=== PATIENT | female | born 1945 | race Caucasian/White ===

== ENCOUNTER 2019-08-29 21:01 | Emergency (ER) | payer MEDICARE, OTHER ==
[~2019-08-29] VITALS: Ht 162.6 cm; Wt 95.2 kg
[2019-08-29 21:47] LABS: BASOPHILS ABSOLUTE AUTO 0.03 K/mm3 (0.00-0.23); BASOPHILS PERCENT AUTO 1 % (0-2); EOSINOPHILS ABSOLUTE AUTO 0.15 K/mm3 (0.00-0.68); EOSINOPHILS PERCENT AUTO 3 % (0-6); Hematocrit 35.9 % (33.0-51.0); Hemoglobin 10.5 g/dL (11.5-16.0); IMMATURE GRAN ABSOLUTE AUTO 0.05 K/mm3 (0.00-0.10); IMMATURE GRAN PERCENT AUTO 1 % (0-1); LYMPHOCYTES PERCENT AUTO 10 % (21-46); MONOCYTES ABSOLUTE AUTO 0.51 K/mm3 (0.16-1.47); MONOCYTES PERCENT AUTO 9 % (4-13); Mean Corpuscular HGB 27.6 pg (26.0-34.0); Mean Corpuscular HGB Conc 29.2 g/dL (31.5-36.5); Mean Platelet Volume 9.4 fL (9.1-12.4); NEUTROPHILS ABSOLUTE AUTO 4.47 K/mm3 (1.96-9.15); NEUTROPHILS PERCENT AUTO 77 % (41-73); Platelet Count 253 K/mm3 (150-400); RDW Coefficient Variation 15.8 % (11.7-14.2); White Blood Cell Count 5.81 K/mm3 (4.00-11.30)
[2019-08-29 21:51] LABS: Mean Corpuscular Volume 95 fL (80-100)
[2019-08-29 22:07] LABS: Alanine Aminotransfer (ALT/SGP 44 U/L (12-78); Albumin, Blood 2.5 g/dL (3.4-5.0); Albumin/Globulin Ratio 0.6 (0.8-1.8); Alk Phos 195 U/L (50-136); Anion Gap 2 mmol/L (6-16); Aspartate Aminotrans (AST/SGOT 42 U/L (12-37); Bilirubin, Total 0.2 mg/dL (0.1-1.0); Blood Urea Nitrogen 10 mg/dL (8-24); Bun/Creatinine Ratio 13.8 (12.0-20.0); CO2, Blood 35 mmol/L (21-32); Calcium, Blood 8.2 mg/dL (8.5-10.1); Chloride, Blood 102 mmol/L (98-108); Creatinine, Blood 0.73 mg/dL (0.40-1.00); Globulin, Blood 4.5 g/dL (2.2-4.0); Glomerular Filtration Rate >60 (60-); Glucose, Blood 91 mg/dL (70-99); Potassium, Blood 4.2 mmol/L (3.5-5.5); Sodium, Blood 139 mmol/L (136-145); Troponin I <0.015 ng/mL (0.000-0.040)
[2019-08-29] MEDS ORDERED: DOXY100 PO (22:49)
[2019-08-29] MEDS ORDERED: LORA.5 PO (22:55)
[2019-08-30 01:13] LABS: PCO2 Arterial 58.7 mmHg (35-45); pH Blood Arterial 7.37 (7.35-7.45)
[2019-08-30] MEDS ORDERED: DELTASONE20 MG PO (01:29)
== END 2019-08-30 01:47 | disposition home or self-care (01) ==
LOC: ER 21:01
PROVIDERS: Emergency Medicine
DX: J44.1 Chronic obstructive pulmonary disease with (acute) exacerbation (principal); J18.9 Pneumonia, unspecified organism; Z79.899 Other long term (current) drug therapy; Z79.2 Long term (current) use of antibiotics; D64.9 Anemia, unspecified; E03.9 Hypothyroidism, unspecified; F41.9 Anxiety disorder, unspecified; F32.9 Major depressive disorder, single episode, unspecified; M79.10 Myalgia, unspecified site
CPT/HCPCS: 36415; 36600; 71046; 80053; 82803; 83605; 83690; 84484; 85025; 87040; 93005; 93010; 94640; 96365; 96375; 99285-25; J0696; J1100; J7030

== ENCOUNTER 2019-09-09 16:21 | Inpatient (IN) | payer MEDICARE, OTHER ==
[~2019-09-09] VITALS: Ht 165.1 cm; Wt 79.1 kg
[~2019-09-09 16:21] MED LIST: DELTASONE20 MG PO; DOXY100 PO; LORA.5 PO
[2019-09-09 17:19] LABS: BASOPHILS ABSOLUTE AUTO 0.04 K/mm3 (0.00-0.23); BASOPHILS PERCENT AUTO 0 % (0-2); EOSINOPHILS ABSOLUTE AUTO 0.29 K/mm3 (0.00-0.68); EOSINOPHILS PERCENT AUTO 3 % (0-6); Hemoglobin 11.4 g/dL (11.5-16.0); IMMATURE GRAN ABSOLUTE AUTO 0.08 K/mm3 (0.00-0.10); IMMATURE GRAN PERCENT AUTO 1 % (0-1); LYMPHOCYTES ABSOLUTE AUTO 0.48 K/mm3 (0.84-5.20); LYMPHOCYTES PERCENT AUTO 5 % (21-46); MONOCYTES ABSOLUTE AUTO 1.33 K/mm3 (0.16-1.47); MONOCYTES PERCENT AUTO 13 % (4-13); Mean Corpuscular HGB 28.2 pg (26.0-34.0); Mean Platelet Volume 10.3 fL (9.1-12.4); NEUTROPHILS ABSOLUTE AUTO 8.44 K/mm3 (1.96-9.15); NEUTROPHILS PERCENT AUTO 79 % (41-73); Platelet Count 238 K/mm3 (150-400); RDW Coefficient Variation 15.5 % (11.7-14.2); RDW Standard Deviation 53.4 fL (35.1-46.3); Red Blood Cell Count 4.04 M/mm3 (3.80-5.20); White Blood Cell Count 10.66 K/mm3 (4.00-11.30)
[2019-09-09 17:20] LABS: Mean Corpuscular Volume 94 fL (80-100)
[2019-09-09 17:26] LABS: Alanine Aminotransfer (ALT/SGP 50 U/L (12-78); Albumin, Blood 2.5 g/dL (3.4-5.0); Albumin/Globulin Ratio 0.5 (0.8-1.8); Alk Phos 254 U/L (50-136); Anion Gap 4 mmol/L (6-16); Aspartate Aminotrans (AST/SGOT 33 U/L (12-37); Bilirubin, Total 0.4 mg/dL (0.1-1.0); Blood Urea Nitrogen 13 mg/dL (8-24); CO2, Blood 37 mmol/L (21-32); Calcium, Blood 8.6 mg/dL (8.5-10.1); Chloride, Blood 95 mmol/L (98-108); Creatinine, Blood 0.68 mg/dL (0.40-1.00); Globulin, Blood 4.9 g/dL (2.2-4.0); Glomerular Filtration Rate >60 (60-); Glucose, Blood 105 mg/dL (70-99); Potassium, Blood 3.7 mmol/L (3.5-5.5); Sodium, Blood 136 mmol/L (136-145); Total Protein, Blood 7.4 g/dL (6.4-8.2)
[2019-09-09 18:24] LABS: Influenza A Negative (NEGATIVE); Influenza B Negative (NEGATIVE)
[2019-09-09] MEDS ORDERED: DULO30 PO (19:37)
[2019-09-09] MEDS ORDERED: THERA-D2000 UNIT PO (19:37)
[2019-09-09] MEDS ORDERED: ASCO500 PO (19:37)
[2019-09-09] MEDS ORDERED: FERSU300 PO (19:38)
[2019-09-09] MEDS ORDERED: FOLI400 PO (19:38)
[2019-09-09] MEDS ORDERED: FURO40 PO (19:38)
[2019-09-09] MEDS ORDERED: LEVSOD125 PO (19:38)
[2019-09-09] MEDS ORDERED: PRAM.5 PO (19:39)
[2019-09-09] MEDS ORDERED: Pravachol40 MG PO (19:39)
[2019-09-09] MEDS ORDERED: PROBIOTIC1 EAC4 PO (19:39)
[2019-09-09] MEDS ORDERED: SPIR25 PO (19:40)
[2019-09-09] MEDS ORDERED: INCRUSE ELLI62.5 MCG INH (19:40)
[2019-09-09] MEDS ORDERED: FLUT1DIS8 INH (19:41)
[2019-09-09] MEDS ORDERED: CARBAMAZEPINE100 M1 PO (19:42)
[2019-09-09] MEDS ORDERED: CARV3.125 PO (19:42)
[2019-09-09] MEDS ORDERED: MUCUS ER600 M1 PO (19:43)
[2019-09-09] MEDS ORDERED: OMEPRAZOLE20 MG PO (19:43)
[2019-09-09] MEDS ORDERED: Keppra250 MG PO (19:43)
[2019-09-09] MEDS ORDERED: ACET325 PO ×2 (19:44→19:49)
[2019-09-09] MEDS ORDERED: GABA100 PO (19:44)
[2019-09-09] MEDS ORDERED: BUSP10 PO (19:44)
[2019-09-09] MEDS ORDERED: MORPHINE SULFAT15 M1 PO ×2 (19:45→19:48)
[2019-09-09] MEDS ORDERED: POTA10T PO (19:45)
[2019-09-09] MEDS ORDERED: NITR.4SL SL (19:46)
[2019-09-09] MEDS ORDERED: ALBU2.5V5 NEB (19:46)
[2019-09-09] MEDS ORDERED: ONDA4 PO (19:47)
[2019-09-09] MEDS ORDERED: ALBU90OI INH (19:49)
[2019-09-09] MEDS ORDERED: Eq Liquid Anta769 ML PO (19:52)
[2019-09-09] MEDS ORDERED: BISA10S PR (19:53)
[2019-09-09] MEDS ORDERED: Fleet Enema132 ML PR (19:53)
[2019-09-09] MEDS ORDERED: GLYCERIN1 EACH PR (19:54)
[2019-09-09] MEDS ORDERED: MIRALAX17 GM PO (19:54)
[2019-09-09] MEDS ORDERED: Milk Of Ma400 MG/5 M PO (19:56)
[2019-09-09] MEDS ORDERED: DICLOFENAC SOD100 G1 TOP (19:57)
[2019-09-09] MEDS ORDERED: LIDO5TO TOP (19:57)
[2019-09-09 20:18] LABS: PO2 Arterial 65.5 mmHg (80-100); pH Blood Arterial 7.39 (7.35-7.45)
--- NOTE | 2019-09-10 01:30 | NUR ---
NOTIFIED NURSING SOLVENT MIXER OF PT'S DECLINING CONDITION AND INCREASED RESPIRATORY NEEDS, TACHY HR, AND INCREASED RESPIRATIONS OF 27, TEMP OF 100.5. NURSING SOLVENT MIXER TO COME AND ASSESS PT. 0216 NURSING SOLVENT MIXER IN TO SEE PT. NEW IV PLACED BY SOLVENT MIXER, SHIRIN RESTARTED. TEMP 102.5. TYLENOL GIVEN. 0235 HR 125, RESP 34. NURSING SOLVENT MIXER AWARE, SPOKE TO HOSPITALIST, PT TO BE TRANSFERRED TO ICU 6. 0258 REASSESSED TEMP, 101.8. PT TO BE TRANSFERRED TO ICU 6, PCU STATUS.
--- NOTE | 2019-09-10 02:24 | NUR ---
PT WAS ADMITTED FROM THE ER AND SHE SEEMED VERY SICK. HER HR WENT UP TO 150 BPM AT TIMES. IRRIGATION PUMP INSTALLER IN HER ROOM AT THAT TIME AND SHE CALLED THE PHYSICIAN AND THE SUPERVISOR WOOL SHEARING. THE SUPERVISOR WOOL SHEARING AND IRRIGATION PUMP INSTALLER ARE STILL IN THE ROOM WITH THE PATIENT. PT'S DAUGHTER CALLED TO CHECK ON HER MOM IN THE MIDST OF THIS. SHE WANTS A CALL BACK SOON WE KNOW WHAT'S GOING ON WITH HER MOM AND IF SHE WILL BE MOVED TO HIGHER LEVEL OF CARE. I INFORMED THE DAUGHTER WE WILL CALL HER SOON WE KNOW ANYTHING.
--- NOTE | 2019-09-10 03:15 | NUR ---
REPORT GIVEN TO HUNG, ICU DOCKETING SPECIALIST. PT TRANSPORTED WEARING MASK ON 5L 02 VIA OXIMIZER. ALL PERSONAL BELONGINGS, MEDS, AND CHART TRANSPORTED TO ICU 6. DAUGHTER INFORMED OF TRANSFER PER RN.
--- NOTE | 2019-09-10 03:29 | NUR ---
SHIFT SUMMARY PT WAS ADMITTED ABOUT 1999 LAST EVENING. HER CONDITION WORSENED WHILE HERE ON THE MEDICAL FLOOR. HER RR INCREASED TO 34 BPM AND HER TEMP WAS 102.5 AND HER OXYGEN SATS KEPT DROPPING SO HER O2 WAS TURNED UP TO 5L O2 AND SHE WAS SATTING AT 90% ON 5L WHEN SHE LEFT THIS FLOOR. SHE WAS ADMITTED TO ICU 6. DR. ANDERSON CAME DOWN AND ASSESSED HER BEFORE SHE LEFT THIS FLOOR. SHE WAS ADMITTED FOR ACUTE ON CHRONIC RESP FAILURE. THIS RN SPOKE WITH HER DAUGHTER ON THE PHONE. THE FIRST TIME SHE WANTED TO KNOW ALL OF THE BASIC INFORMATION AND THE SECOND PHONE CALL, I TOLD HER THAT HER MOM WAS GOING TO BE MOVED TO ICU. SHE LEFT THIS FLOOR ABOUT 0300.
[2019-09-10 03:54] LABS: Source, Urine Catheter
[2019-09-10 03:55] LABS: BASOPHILS ABSOLUTE AUTO 0.04 K/mm3 (0.00-0.23); BASOPHILS PERCENT AUTO 0 % (0-2); EOSINOPHILS ABSOLUTE AUTO 0.21 K/mm3 (0.00-0.68); EOSINOPHILS PERCENT AUTO 1 % (0-6); Hematocrit 37.3 % (33.0-51.0); IMMATURE GRAN PERCENT AUTO 1 % (0-1); LYMPHOCYTES ABSOLUTE AUTO 0.29 K/mm3 (0.84-5.20); LYMPHOCYTES PERCENT AUTO 2 % (21-46); MONOCYTES ABSOLUTE AUTO 1.52 K/mm3 (0.16-1.47); MONOCYTES PERCENT AUTO 9 % (4-13); Mean Corpuscular HGB 27.7 pg (26.0-34.0); Mean Corpuscular HGB Conc 29.5 g/dL (31.5-36.5); Mean Corpuscular Volume 94 fL (80-100); Mean Platelet Volume 10.1 fL (9.1-12.4); NEUTROPHILS ABSOLUTE AUTO 14.09 K/mm3 (1.96-9.15); NEUTROPHILS PERCENT AUTO 87 % (41-73); Platelet Count 248 K/mm3 (150-400); RDW Coefficient Variation 15.4 % (11.7-14.2); RDW Standard Deviation 53.6 fL (35.1-46.3); Red Blood Cell Count 3.97 M/mm3 (3.80-5.20); White Blood Cell Count 16.25 K/mm3 (4.00-11.30)
[2019-09-10 03:58] LABS: Bilirubin, Urine Neg (Neg); Blood, Urine Neg (Neg); Glucose Qualitative, Urine Neg (Neg); Ketones, Urine 2+ (Neg); Leukocyte Esterase, Urine Neg (Neg); Nitrite, Urine Neg (Neg); Protein, Urine Neg (Neg); Urobilinogen, Urine 1+ (Normal)
[2019-09-10 04:03] LABS: Appearance, Urine Clear (Clear); Color, Urine Yellow (P-Yellow)
--- NOTE | 2019-09-10 04:05 | NUR ---
DAUGHTER HERMELINDA AT BEDSIDE AND STATES PT WAS JUST AT [facility] FOR TWO WEEKS LAST MONTH.
--- NOTE | 2019-09-10 04:16 | NUR ---
DR. SIMPSON AT BEDSIDE.
--- NOTE | 2019-09-10 04:48 | NUR ---
DAUGHTER REQUEST TO SPEAK TO DOCTOR. DR. SIMPSON NOTIFIED.
--- NOTE | 2019-09-10 05:04 | NUR ---
DR. SIMPSON TO ROOM. VERBAL ORDER TO START PT ON NS 150/hr AND IF PT'S BP DROPS AGAIN TO BEGIN LOW DOSE LEVOPHED.
--- NOTE | 2019-09-10 05:32 | NUR ---
PT AWAKENS SLIGHTLY WHEN REPOSITIONED AND WHEN RT REPLACED BIPAP MASK BUT WOULD FALL BACK TO SLEEP, NOT FOLLOWING COMMANDS.
--- NOTE | 2019-09-10 05:43 | NUR ---
CALL FROM PT'S DAUGHTER HERMELINDA. HERMELINDA GIVEN UPDATE AND REPEAT INFORMATION REGARDING COMFORT MEASURE PROTOCOL.
[2019-09-10 07:19] LABS: PCO2 Arterial 51.3 mmHg (35-45); PO2 Arterial 64.8 mmHg (80-100); pH Blood Arterial 7.38 (7.35-7.45)
--- NOTE | 2019-09-10 07:58 | NUR ---
Reciueved report from Floridalma HACKETT. Patient resting in bed and awakens to verbal stimuli. She is able to answer questions buts states scared as she can not remember anything and assured her she is safe and she is doing better then when she arrived. She states no pain and breathing better. She was and is on BIPAP16/6 and 30% FiO2 and sats 97% and while doing am care had mask off and started to desat after about 10 minutes to high 80's and recovered very quickly after placing BIPAP. She knows self and unable to answer anything else currently. She has 18ga IV in LAC and dressing intact and site WNL's flushed and SL's. She also has 20ga IV RW dressing intact and site WNL's and is infusing NS at 150ml/hr. She has hearing aid left ear and states other one was at care facility and was not working well. HR 80-90's and systolic high 90's. CAMPUZANO but very weak and takes her time to follow directions.
--- NOTE | 2019-09-10 09:30 | NUR ---
Patient resting with BIPAP in place with same settings and sats upper 90%'s. She is clearing and having better conversations. Systolic 90-120 and HR 70-80's. No other significant changes, Using extremoities better and quicker with following directions.
--- NOTE | 2019-09-10 11:29 | NUR ---
Patient has several times stated she had BM and last time rond hard showing and got her up to bedside cammode and had extra large BM very dark and almost black. She was a two person assist to cammode and 1 back. She was able to reposition self back in bed. She was on 4L O2 via NC for about an hour and just placed her back on BIPAP original settings for a nap.
--- NOTE | 2019-09-10 13:30 | NUR ---
Patients family in room at bedside. She is on 4L O2 via NC. Dr Eng has been by and wants her to stay in ICU one more day to see if systolic remains above 100 after fluids finish. She has tolerated NC and sats upper 90%'s and states not struggling to breath. PT worked with patient and since family in room OT will come back.
--- NOTE | 2019-09-10 17:52 | NUR ---
She is sitting up in bed after ray celestin and starting on her chicken noodle soup. She tolerated med taking them herself. She is on 4L O2 via NC and sats upper 90%'s, just took her off bipap. Systolic 99-130's. Continued to hold her coreg as fluyids are almost done and dont want pressure to bottom out.
--- NOTE | 2019-09-10 19:02 | NUR ---
Fluids stopped after 2 liters and her systolic remains at 120's, HR 80's. She remains on 4L O2 and sats 99%.
--- NOTE | 2019-09-11 00:02 | NUR ---
START OF SHIFT: REPORT FROM BILLY HACKETT. PT AWAKE WATCHING TV. VSS. PT ON 5L NASAL CANNULA, SATS >95%. PRIOR TO INITIAL ASSESSMENT, PT'S DAUGHTER HERMELINDA CALLED AND WAS UPDATED. PT WAS INFORMED THAT DAUGHTER HAD CALLED. PT STATED WANTS TO GO HOME ON HOME HEALTH. PT'S DAUGHER STATED PT WILL GO HOME AND HOPEFULLY END UP ON HOSPICE. PT USED TELEPHONE TO CALL THE DAUGHTER TO MAKE ARRANGEMENTS FOR SOMEONE TO GO GET HER THINGS FROM [facility]. PT REMAINS AWAKE FALLING ASLEEP FOR BRIEF MOMENTS. PT WATCHES TV AND IS MUNCHING ON CRACKERS AND PUDDING. PT SWALLOWS WITHOUT DIFFICULTY SIPPING FROM CUPS. WILL CONTINUE TO MONITOR. CALL LIGHT WITHIN REACH.
[2019-09-11 03:42] LABS: BASOPHILS ABSOLUTE AUTO 0.01 K/mm3 (0.00-0.23); BASOPHILS PERCENT AUTO 0 % (0-2); EOSINOPHILS PERCENT AUTO 0 % (0-6); Hematocrit 34.4 % (33.0-51.0); IMMATURE GRAN ABSOLUTE AUTO 0.06 K/mm3 (0.00-0.10); IMMATURE GRAN PERCENT AUTO 1 % (0-1); LYMPHOCYTES ABSOLUTE AUTO 0.29 K/mm3 (0.84-5.20); LYMPHOCYTES PERCENT AUTO 4 % (21-46); MONOCYTES ABSOLUTE AUTO 0.23 K/mm3 (0.16-1.47); MONOCYTES PERCENT AUTO 3 % (4-13); Mean Corpuscular HGB 27.8 pg (26.0-34.0); Mean Corpuscular HGB Conc 29.1 g/dL (31.5-36.5); Mean Corpuscular Volume 96 fL (80-100); Mean Platelet Volume 10.1 fL (9.1-12.4); NEUTROPHILS ABSOLUTE AUTO 7.45 K/mm3 (1.96-9.15); NEUTROPHILS PERCENT AUTO 93 % (41-73); Platelet Count 185 K/mm3 (150-400); RDW Coefficient Variation 15.4 % (11.7-14.2); RDW Standard Deviation 54.3 fL (35.1-46.3); White Blood Cell Count 8.04 K/mm3 (4.00-11.30)
--- NOTE | 2019-09-11 04:03 | NUR ---
PT C/O LINO, REQUESTING TYLENOL AND COFFEE. PT C/O BOTTOM PAIN FOR TWO WEEKS AND POINTED TO THE INNER FOLD OF LEFT BUTTOCK AND STATED THAT IT'S BEEN BOTHERSOME FOR A COUPLE OF WEEKS NOW. COCCXY SLIGHTLY REDDENED. MEPILEX PLACED.
[2019-09-11 04:05] LABS: Alanine Aminotransfer (ALT/SGP 27 U/L (12-78); Albumin/Globulin Ratio 0.4 (0.8-1.8); Alk Phos 159 U/L (50-136); Anion Gap 3 mmol/L (6-16); Aspartate Aminotrans (AST/SGOT 17 U/L (12-37); Bilirubin, Total 0.2 mg/dL (0.1-1.0); Blood Urea Nitrogen 13 mg/dL (8-24); Bun/Creatinine Ratio 23.3 (12.0-20.0); CO2, Blood 31 mmol/L (21-32); Calcium, Blood 7.4 mg/dL (8.5-10.1); Chloride, Blood 105 mmol/L (98-108); Creatinine, Blood 0.56 mg/dL (0.40-1.00); Globulin, Blood 4.7 g/dL (2.2-4.0); Glomerular Filtration Rate >60 (60-); Glucose, Blood 163 mg/dL (70-99); Potassium, Blood 3.5 mmol/L (3.5-5.5); Sodium, Blood 139 mmol/L (136-145); Total Protein, Blood 6.7 g/dL (6.4-8.2)
--- NOTE | 2019-09-11 05:03 | NUR ---
UPDATE: PT REMAINS ON O2 3L VIA N/C T/O NOC WITH SATS >95% EVEN AT SLEEP LYING SUPINE. VSS. PT TURNS SELF PRN. SIPPING FLUIDS WITHOUT DIFFICULTY. ONLY EATING BITES OF CRACKERS THUS FAR. URINE OUTPUT ONLY 200cc T/O NOC WILL INFORM MD AND/OR DAY RN TO PASS ON. WILL CONTINUE TO MONITOR.
[2019-09-11 06:49] LABS: Albumin, Blood 2.1 g/dL (3.4-5.0); Anion Gap 5 mmol/L (6-16); Blood Urea Nitrogen 14 mg/dL (8-24); Bun/Creatinine Ratio 24.5 (12.0-20.0); CO2, Blood 29 mmol/L (21-32); Calcium, Blood 7.5 mg/dL (8.5-10.1); Chloride, Blood 105 mmol/L (98-108); Creatinine, Blood 0.57 mg/dL (0.40-1.00); Glomerular Filtration Rate >60 (60-); Glucose, Blood 161 mg/dL (70-99); Phosphorus, Blood 2.1 mg/dL (2.5-4.9); Potassium, Blood 3.5 mmol/L (3.5-5.5); Sodium, Blood 139 mmol/L (136-145)
--- NOTE | 2019-09-11 08:00 | NUR ---
Patient awake post report from Floridalma HACKETT. Patient requested to get up to bedside cammode and assisted with one person. She sats there for about 20 minutes and had small formed stool. She remains on 3 L O2 via NC and sats upper 90%'s. Systolic 100-130 and HR 80's. She is alert and oriented and is able to communicate her needs. When getting her back to bed all linene were changed and she recieved full bed bath. She denied wanting anything for breakfast. She has audible coarse upper airway.
--- NOTE | 2019-09-11 09:35 | NUR ---
Patient resting and continues on 3L O2 via NC and sats upper 90%'s. She tolerated all am meds with apple sauce and pepsi. Applied lidocain gel to left hip where she has 2 crusted shingle spots and covered with seal dressing. She is sitting up watching TV and has no current needs.
--- NOTE | 2019-09-11 11:45 | NUR ---
PT worked with patient and she has been up in chair since and tolerating well. VSS. Dr Eng by and is making her med status. Family ill be taking home upon discharge to daughter Rosmery's house with home health and confirmed OK with Dr Eng. She remains on 3L O2 via NC.
--- NOTE | 2019-09-11 13:32 | NUR ---
PT. ARRIVED TO FLOOR VIA WC FROM ICU. PLEASANT AND COOPERATIVE, APPEARS TO BE A&O
--- NOTE | 2019-09-11 13:37 | NUR ---
Patient transfered with belongings and BIPAP via wheelchair. Gave more report at bedside and patient two person transfer to bed. Family notified of room transfer.
--- NOTE | 2019-09-11 18:26 | NUR ---
PT. SITTING IN BED WATCHING TV HAS PICKED AT HER DINNER. ALTHOUGH PT. WAS A&O UPON COMING TO FLOOR SHE APPEARS TO BE SOMEWHAT CONFUSED AT THIS TIME POSSIBLY HAVING VISUAL HALLUCINATIONS. TURNING HER HEAD TO RIGHT AND TALKING TO SOMEONE, SHE THEN ASKED ME HOW MANY WERE . NO CLEAR ABOUT WHAT SHE WAS TALKING ABOUT. SOMETHING ABOUT PEOPLE LAYING ON THE RAILROAD TRACKS. DOES NOT TRY TO CLIMB OOB. SHE IS A ONE PERSON ASSIST UP
[2019-09-12 05:07] LABS: BASOPHILS PERCENT AUTO 0 % (0-2); EOSINOPHILS PERCENT AUTO 0 % (0-6); Hematocrit 31.5 % (33.0-51.0); Hemoglobin 9.2 g/dL (11.5-16.0); IMMATURE GRAN ABSOLUTE AUTO 0.08 K/mm3 (0.00-0.10); IMMATURE GRAN PERCENT AUTO 1 % (0-1); LYMPHOCYTES ABSOLUTE AUTO 0.34 K/mm3 (0.84-5.20); LYMPHOCYTES PERCENT AUTO 4 % (21-46); MONOCYTES ABSOLUTE AUTO 0.47 K/mm3 (0.16-1.47); MONOCYTES PERCENT AUTO 6 % (4-13); Mean Corpuscular HGB 27.8 pg (26.0-34.0); Mean Corpuscular HGB Conc 29.2 g/dL (31.5-36.5); Mean Corpuscular Volume 95 fL (80-100); Mean Platelet Volume 10.2 fL (9.1-12.4); NEUTROPHILS ABSOLUTE AUTO 7.39 K/mm3 (1.96-9.15); NEUTROPHILS PERCENT AUTO 89 % (41-73); Platelet Count 195 K/mm3 (150-400); RDW Coefficient Variation 15.5 % (11.7-14.2); RDW Standard Deviation 54.1 fL (35.1-46.3); Red Blood Cell Count 3.31 M/mm3 (3.80-5.20); White Blood Cell Count 8.28 K/mm3 (4.00-11.30)
[2019-09-12 05:29] LABS: Anion Gap 3 mmol/L (6-16); Blood Urea Nitrogen 9 mg/dL (8-24); Bun/Creatinine Ratio 15.6 (12.0-20.0); CO2, Blood 30 mmol/L (21-32); Calcium, Blood 7.4 mg/dL (8.5-10.1); Chloride, Blood 105 mmol/L (98-108); Creatinine, Blood 0.58 mg/dL (0.40-1.00); Glomerular Filtration Rate >60 (60-); Glucose, Blood 132 mg/dL (70-99); Potassium, Blood 3.8 mmol/L (3.5-5.5); Sodium, Blood 138 mmol/L (136-145)
--- NOTE | 2019-09-12 05:32 | NUR ---
SHIFT SUMMARY- PT. SPENT MOST OF THE NIGHT SITTING UP IN BED WATCHING TV. C/O PAIN TO HER BOTTOM AND BACK. MEDICATED WITH PAIN MED PER EMAR. PT. ON 3L OF O2 AND CONT OXIMETRY. NO ACUTE CHANGES TO CONDITION. PLAN IS FOR PT. TO BE D/C'D TO HOME W/HH. PT. DENIES ANY NEEDS AT THIS TIME. RESTING COMFORTABLY IN BED, NO APPARENT DISTRESS NOTED. CALL LIGHT WITHIN REACH AND SIDE RAILS UP X2. WILL CONT TO MONITOR.
--- NOTE | 2019-09-12 11:28 | NUR ---
SHE TRANSFERRED UP INTO THE CHAIR WITH OT AT BREAKFAST TIME. SHE IS STILL SITTING UP. SHE HAS WATCHED TV AND TALKED ON THE PHONE. ROUNDED. SHE WILL CALL DAVID'S DAUGHTER HERMELINDA PER HER REQUEST. LABS GOOD TODAY. DROPLET ISOLATION ONGOING. DNR. FOAM REMOVED FROM L FLANK OVER SOME SHINGLE SCABS. THEY ARE DRY. FOAM DRESSING STILL ON COCCYX. SHE SAYS HER COCCYX HURTS BUT MOSTLY HER BACK AND OTHER JOINTS.
--- NOTE | 2019-09-12 17:05 | NUR ---
SHE IS RESTING IN BED AFTER SITTING UP A LONG TIME EARLIER TODAY AND WORKING WITH THERAPY. SHE C/O PAIN IN HER BACK, HER L FLANK SHINGLES AREA, A SHOULDER AND VARIOUS OTHER PLACES. SHE HAS SCD'S ON. SHE HAS A POOR APPETITE. DIETITION CONSULTED WITH HER ABOUT HER PO INTAKE. ENSURE WILL ARRIVE WITH MEALS STARTING WITH DINNER TONIGHT. SHE HAS RECEIVED MORPHINE AND TYLENOL, NEITHER VERY EFFECTIVE. SHE ALSO RECEIVED L-M-X-4 CREAM TO SHINGLES AREA. LUNGS ARE VERY COARSE AND WHEEZY. SOB WITH ACTIVITY BUT NOT AT REST.
--- NOTE | 2019-09-13 04:53 | NUR ---
SHIFT SUMMARY- NO ACUTE CHANGES OVERNIGHT. PT. ASLEEP DURING MOST OF THE NIGHT, NO APPARENT DISTRESS NOTED. PT. C/O PAIN MULTIPLE TIMES LAST NIGHT. MEDICATED PER EMAR. DENIED ANY OTHER NEEDS. CALL LIGHT WITHIN REACH AND SIDE RAILS UP X2. WILL CONT TO MONITOR.
--- NOTE | 2019-09-13 17:27 | NUR ---
Initial Spiritual Care note: Mrs. Rod appears quite frail. She tells me she is tired of being sick, and really wants to be home. She lives with her dtr who is a good support. Mrs. Rod auto suspension and steering mechanic has been making regular visits and she feels well connected to God through her ismael. She was appreciative of prayer and gentle spiritual direction. I will remain available.
--- NOTE | 2019-09-13 18:13 | NUR ---
HER CHRONIC PAIN IS HER #1 PROBLEM TO HER. SHE HAS SOME SOB. HER COUGH REMAINS LOOSE AND PRODUCTIVE OF YELLOW SPUTUM. WE RECEIVED A LATE ORDER TODAY FOR AN ST EVAL BECAUSE ASPIRATION IS A CONCERN. HER COARSENESS SOUNDED WORSE TO ME YESTERDAY BUT SOUNDS WORSE TO THE RESP THERAPIST TODAY. O2 3L STILL, AT HOME. FOAM WAS REMOVED FROM HER BOTTOM. IT IS RED BUT NOT BROKEN. HER SHINGLES LOOK MORE HEALED TODAY THAN YESTERDAY. HER BACK IS STILL VERY PAINFUL. NO LABS TODAY. REPEAT CXR WILL BE TOMORROW.
[2019-09-14 05:02] LABS: BASOPHILS ABSOLUTE AUTO 0.01 K/mm3 (0.00-0.23); BASOPHILS PERCENT AUTO 0 % (0-2); EOSINOPHILS PERCENT AUTO 0 % (0-6); Hematocrit 35.4 % (33.0-51.0); Hemoglobin 10.3 g/dL (11.5-16.0); IMMATURE GRAN ABSOLUTE AUTO 0.11 K/mm3 (0.00-0.10); IMMATURE GRAN PERCENT AUTO 2 % (0-1); LYMPHOCYTES ABSOLUTE AUTO 0.28 K/mm3 (0.84-5.20); LYMPHOCYTES PERCENT AUTO 4 % (21-46); MONOCYTES ABSOLUTE AUTO 0.25 K/mm3 (0.16-1.47); MONOCYTES PERCENT AUTO 4 % (4-13); Mean Corpuscular HGB 27.8 pg (26.0-34.0); Mean Corpuscular HGB Conc 29.1 g/dL (31.5-36.5); Mean Corpuscular Volume 96 fL (80-100); NEUTROPHILS ABSOLUTE AUTO 5.77 K/mm3 (1.96-9.15); NEUTROPHILS PERCENT AUTO 90 % (41-73); Platelet Count 199 K/mm3 (150-400); RDW Standard Deviation 53.1 fL (35.1-46.3); White Blood Cell Count 6.42 K/mm3 (4.00-11.30)
[2019-09-14 05:22] LABS: Anion Gap 4 mmol/L (6-16); Blood Urea Nitrogen 10 mg/dL (8-24); Bun/Creatinine Ratio 17.2 (12.0-20.0); CO2, Blood 33 mmol/L (21-32); Chloride, Blood 104 mmol/L (98-108); Creatinine, Blood 0.58 mg/dL (0.40-1.00); Glomerular Filtration Rate >60 (60-); Glucose, Blood 164 mg/dL (70-99); Potassium, Blood 4.3 mmol/L (3.5-5.5); Sodium, Blood 141 mmol/L (136-145)
--- NOTE | 2019-09-14 13:34 | NUR ---
HYDRAULIC PILE HAMMER OPERATOR SHOWERED PATIENT AND PATIENT C/O PAIN TO HERNÁN-AREA. UPON LOOKING HYDRAULIC PILE HAMMER OPERATOR NOTICED MUCH REDNESS TO HERN[place]N-AREA. I CALLED DR AZUL AND INFORMED HER AND SHE PROVIDED NEW ORDERS FOR DIFLUCAN PO DAILY. SMALL AMOUNT OF BABY POWDER PLACED TO HELP WITH PAINFUL RUBBING AGAINST THAT AREA.
--- NOTE | 2019-09-14 18:29 | NUR ---
SHIFT SUMMARY THE PATIENT HAD A NON-EVENTFUL SHIFT. VITALS HAVE BEEN STABLE. SHE CONTINUES ON IV AND PO ABX WITHOUT S/SX OF ADVERSE REACTIONS NOTED OR REPORTED. PIV WENT BACK AND AFTER THREE NURSES ATTEMPTED TO REPLACE ANOTHER IV WITHOUT SUCCESS DR AZUL WAS NOTIFIED AND GAVE A "NO IV ACCESS NEEDED" ORDER AND DISCONTINUED THE IV ABX. PATIENT HAD A SWALLOW EVAL TODAY AND RESULTS INDICATE FOR POSSIBLE FURTHER TESTING. I CHANGED PATIENTS DIET TO MECH SOFT TO HELP WITH CHEWING AND SWALLOWING. TAPIA CATH DISCONTINUED PER MD ORDERS AFTER IT BEGAN LEAKING THIS MORNING, PATIENT VOIDING WITHOUT DIFFICULTY. RASH TO HERNÁN-AREA BRIGHT RED, LOOKS YEASTY. DR AZUL STARTED PATIENT ON PO FLAGYL. WILL CONTINUE TO MONITOR AND PROVIDE CARE NEEDED.
--- NOTE | 2019-09-14 20:58 | NUR ---
RT IN FOR BREATHING TX. ON 3L O2 NC. WATCHING TV. CALL LIGHT IN REACH.
--- NOTE | 2019-09-14 21:24 | NUR ---
NO IV ACCESS. NOTIFIED HOSPITALIST VERNA CERVANTES; PATIENT HAD IV SOLU-MEDROL 60 MG BID. VERNA CERVANTES ORDERED PO PREDNISONE 60 MG BID AND START NOW.
--- NOTE | 2019-09-15 04:48 | NUR ---
SHIFT SUMMARY PATIENT HAD NO ACUTE CHANGES OBSERVED. AXOX 3 AND SBA TO BR W/FWW GAIT BELT. TAKES LARGE MEDICATION CRUSHED IN A.S. REPORTED BACK/LEFT FLANK PAIN X TWO AND MS CONTIN AND TYLENOL GIVEN PER EMAR. RT IN FOR BREATHING TX. ON 3L O2 NC BASELINE. NO IV ACCESS. IV SOLU-MEDROL 60 MG CHANGED TO PO PREDNISONE 60 MG. [place]. COOPERATIVE WITH CARE. VSS/AFEBRILE. CALL LIGHT IN REACH. BED IN LOWEST POSITION. WILL CONTINUE TO MONITOR UNTIL DAY SHIFT NURSE ASSUMES CARE.
--- NOTE | 2019-09-15 14:48 | NUR ---
SHIFT SUMMARY PT AWAKE DURING SHIFT REPORT THIS AM. ADMITTED FOR RESP FAILURE WITH HYPOXEMIA AND RLL PNM. 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 SP THERAPY TO AT THE START OF SHIFT, REPORTING PT TO HAVE FL DIET D/T ASPIRATION RISK. PT ALSO TO HAVE MEDS CRUSHED IN APPLESAUCE. PER SP THERAPY, PT HAS AN ESOPHAGEAL WEB MAKING HER AN ASPIRATION RISK. PT REPORTED THIS IS THE 4TH TIME SHE HAS HAD PNM SINCE . DR AZUL IN EARLY TO SEE PT, REQUESTING GI CONSULT FOR TODAY. DR BERNAL NOT AVAILABLE UNTIL TOMORROW. DR AZUL AWARE. UNABLE TO CALL CONSULT UNTIL AM. PER SHIFT REPORT, PT HAD BEEN AT BUT MAY NOW BE D/C HOME WITH H/H AND DAUGHTER TO MANAGE HER CARE. PT ON 3L O2, WHICH IS HER BASELINE HOME O2. PT UP TO BTHRM WITH FWW AND 1P ASSIST. LUNGS T/O ARE VERY COARSE. PT REPORTED RECENT SHINGLES TO L SIDE AND AROUND BACK; ONLY 1 SM SCAB REMAINS. PT ALSO REPORTED SEVERAL RECENT FALLS AT WITH C/O SORENESS TO L SIDE FROM GAITBELT USED TO ASSIST AFTER SHE FELL. NO SIGN OF EXTERNAL BRUISING. ABX CHANGED TODAY, PER DR AZUL TO BETTER ADDRESS INFECTION SENSITIVITY. PT UP WITH PT/OT TODAY. UP TO CHAIR FOR ALL MEALS PER SP TX. MEDICATED PER EMAR FOR C/O PAIN TO BACK. VISITORS TO WELL. PT EATING POORLY, BUT DRINKING ALOT OF PEPSI. RESTING QUIETLY AT THIS TIME. CALL LT IN REACH.
--- NOTE | 2019-09-16 03:36 | NUR ---
SHIFT SUMMARY PATIENT HAD NO ACUTE CHANGES OBSERVED. AXOX 3 AND SBA TO BR. ON 3.5 L O2 NC. DESTATS AFTER AMBULATION TO BR AND RETURNS TO BED; DOWN INTO THE MID 80'S AND BACK TO 90'S ONCE SETTLED IN. VSS/AFBERILE. DENIES N/V. REPORTED BACK PAIN AND MS CONTIN GIVEN PER EMAR. MEDICATIONS CRUSHED IN APPLE SAUCE. DROPLET PRECAUTIONS. RT IN FOR BREATHING TX. ANSWERING SERVICE NOT ABLE TO TAKE CONSULT AND REPORTS TO CALL AFTER 8 AM. COOPERATIVE WITH CARE. CALL LIGHT IN REACH. BED IN LOWEST POSITION. WILL CONTINUE TO MONITOR UNTIL DAY SHIFT NURSE ASSUMES CARE.
--- NOTE | 2019-09-16 17:21 | NUR ---
SHIFT SUMMARY PT AWAKE AGAIN EARLY THIS AM, ASSISTED TO CHAIR AT TO GET READY FOR BREAKFAST. CONSULT CALLED TO DR BERNAL THIS AM PER ORDERS. PT TO MAINTAIN FL DIET TODAY, NO PROCEDURE TO BE DONE UNTIL AT LEAST TOMORROW. PT UP WITH PT/OT TODAY AND ABLE TO TAKE A SHOWER WITH SM AMT OF ASSIST FROM O/T. LINEN CHANGE COMPLETE AND PT ASSISTED BACK TO BED. DR BERNAL IN TO SEE PT EARLIER THIS EVENING. DISCUSSED PLAN OF CARE WITH PT FOR A LONG TIME. DR BERNAL THEN CALLED PT'S DAUGHTER TO DISCUSS OPTIONS AND PLAN OF CARE. PT'S LUNGS REMAIN VERY COARSE WITH EXP WHEEZES THRU OUT. PT TO POSSIBLY F/U OUT PT IN A COUPLE OF WEEKS FOR PROCEDURE, TO ALLOW PT'S LUNGS TO IMPROVE. PT UP TO CHAIR FOR MEALS AND AGAIN FOR DINNER. PT MEDICATED PER EMAR FOR C/O L SIDE PAIN, NEEDED. TALKED ON PHONE AT TIMES TODAY. ABLE TO PLACE HER OWN PHONE CALLS. VERY [place] THOUGH, NEEDING THINGS REPEATED MULTIPLE TIMES. CALL LT IN REACH. ABLE TO MAKE NEEDS KNOWN.
--- NOTE | 2019-09-16 23:18 | NUR ---
1920: PT SITTING IN BED WATCHING TV AND ASKING ABOUT HER PAIN MEDS. DISCUSSED MED SCHEDULE. 20:20 ASSESSMENT COMPLETED. MEDS GIVEN PER EMAR. PT OOB TO BRP. BED LOW AND LOCKED AND ALARMED PT NOT CALLING FOR SBA AND QUITE UNSTEADY ON HER FEET. CALL DEE WITHIN REACH.
--- NOTE | 2019-09-17 00:05 | NUR ---
PATIENT WAS FOUND ON HER KNEEDS IN THE BATHROOM, PER [employer]IONS ARCHITECT SHE SLID DOWN ONTO HER KNEES AFTER SITTING ON THE COMMODE AND LEANING FORWARD. PATIENT DENIES PAIN AND WAS HELPED BACK TO BED. DR WILL BE NOTIFIED WITH NEXT CALL OUT TO HOSPITALIST. BSC TO SIDE OF BED. PT EDUCATED REGARDING FALL PREVENTION. BED ALARM INCREASED TO NEXT LEVEL.
[2019-09-17] MEDS ORDERED: Diflucan100 MG PO (15:25)
[2019-09-17] MEDS ORDERED: Prednisone10 MG PO (15:26)
[2019-09-17] MEDS ORDERED: Sulfamethoxazo1 EAC4 PO (15:28)
--- NOTE | 2019-09-17 17:07 | NUR ---
DISCHARGE SUMMARY PT STABLE, ON 2L OF NC. PT TAKEN BY W/C TO PRIVATE CAR. SRIPTS SENT TO [facility] PER PT REQUEST. PT HAD NO FURTHUR QUESTIONS ABOUT D/C INSTRUCTIONS, BELONGING SENT WITH PT.
== END 2019-09-17 16:50 | disposition home health service (06) | DRG 871 ==
LOC: ER 16:21 → MEDS 20:12 → ICUE 20:12 → MEDS 20:45 → ICUE 09-10 02:53 → MEDS 09-10 18:02 → ICUE 09-10 18:08 → MEDS 09-11 13:24 → ENPENDDIS 09-17 14:16 → MEDS 09-17 16:50
PROVIDERS: Emergency Medicine; Family Medicine; Internal Medicine; ADMIT Hospitalist
PROC: 5A09457 Assistance with Respiratory Ventilation, 24-96 Consecutive Hours, Continuous Positive Airway Pressure (ICD-10-PCS; principal; 2019-09-09)
PROC: 02HV33Z Insertion of Infusion Device into Superior Vena Cava, Percutaneous Approach (ICD-10-PCS; 2019-09-10)
DX: A41.9 Sepsis, unspecified organism (principal); J69.0 Pneumonitis due to inhalation of food and vomit; R65.21 Severe sepsis with septic shock; J96.21 Acute and chronic respiratory failure with hypoxia; Q39.4 Esophageal web; J44.1 Chronic obstructive pulmonary disease with (acute) exacerbation; Z99.81 Dependence on supplemental oxygen; F32.9 Major depressive disorder, single episode, unspecified; F41.9 Anxiety disorder, unspecified; G40.909 Epilepsy, unspecified, not intractable, without status epilepticus; E03.9 Hypothyroidism, unspecified; K21.9 Gastro-esophageal reflux disease without esophagitis; R13.10 Dysphagia, unspecified; I50.9 Heart failure, unspecified; Z90.2 Acquired absence of lung [part of]; Z85.118 Personal history of other malignant neoplasm of bronchus and lung; Z87.891 Personal history of nicotine dependence
CPT/HCPCS: 36415; 36600; 71045; 71046; 74220; 80048; 80053; 80069; 81003; 82803; 82947; 83605; 83880; 84145; 85025; 87040; 87070; 87077; 87106; 87186; 87205; 87804; 92526; 92610; 93005; 93010; 94640; 94660; 94668; 94760; 94762; 96365; 96367; 97110; 97116; 97162; 97166; 97530; 97535; 99285-25; A9270; A9270-GY; J0456; J0696; J0713; J1650; J1940; J1956; J2930; J3370; J7030; J7050; J7512

== ENCOUNTER 2020-05-23 00:22 | Day surgery (SDC) | payer MEDICARE, OTHER ==
[~2020-05-23 00:22] MED LIST changes: +ACET325 PO; +ALBU2.5V5 NEB; +ALBU90OI INH; +ASCO500 PO; +BISA10S PR; +BUSP10 PO; +CARBAMAZEPINE100 M1 PO; +CARV3.125 PO; +DICLOFENAC SOD100 G1 TOP; +DULO30 PO; +Diflucan100 MG PO; +Eq Liquid Anta769 ML PO; +FERSU300 PO; +FLUT1DIS8 INH; +FOLI400 PO; +FURO40 PO; +Fleet Enema132 ML PR; +GABA100 PO; +GLYCERIN1 EACH PR; +INCRUSE ELLI62.5 MCG INH; +Keppra250 MG PO; +LEVSOD125 PO; +LIDO5TO TOP; +MIRALAX17 GM PO; +MORPHINE SULFAT15 M1 PO; +MUCUS ER600 M1 PO; +Milk Of Ma400 MG/5 M PO; +NITR.4SL SL; +OMEPRAZOLE20 MG PO; +ONDA4 PO; +POTA10T PO; +PRAM.5 PO; +PROBIOTIC1 EAC4 PO; +Pravachol40 MG PO; +Prednisone10 MG PO; +SPIR25 PO; +Sulfamethoxazo1 EAC4 PO; +THERA-D2000 UNIT PO
--- NOTE | 2020-05-23 17:30 | NUR ---
ORDERS AND CONSENT NOTED FOR PICC PLACEMENT. TIME OUT 1600. MAINTAIN STERILE TECHNIQUE T/O PROCEDURE. 1ST ATTEMPT RUE BASILIC. VEIN ACCESSED BUT ONLY ABLE TO THREAD GUIDEWIRE PAST APPROXIMATELY 5-6 CM. NEEDLE REMOVED AND 2ND ATTEMPT WAS RUE BRACHIAL. GOOD VEIN ACCESS, GOOD BLOOD DRIP AND VISUALIZED NEEDLE PLACEMENT IN VEIN VIA US. GUIDEWIRE/INTRODUCER PLACED BUT ONLY ABLE TO THREAD PICC LINE TO APPROXIMATELY 12-14 CM BUT NOT ABLE TO FLUSH LINE OR DRAW BLOOD. LINE REMOVED, FOLDED 4X4 GAUZE AND WINDOW DRESSING PLACED. PT VERBALIZES UNDERSTANDING AND WILL CONTACT HER DR TOMORROW TO LET THEM KNOW BOTH PICC RN'S NOT ABLE TO PLACE PICC. PT LEFT IN STABLE CONDITON. NO BLEEDING NOTED ON DRESSING.
== END 2020-05-23 16:40 | disposition home or self-care (01) ==
LOC: ATC 00:22
DX: M15.9 Polyosteoarthritis, unspecified (principal); D62 Acute posthemorrhagic anemia; J96.11 Chronic respiratory failure with hypoxia; I50.32 Chronic diastolic (congestive) heart failure; G89.4 Chronic pain syndrome; F33.1 Major depressive disorder, recurrent, moderate; J43.1 Panlobular emphysema; R13.10 Dysphagia, unspecified; Z79.01 Long term (current) use of anticoagulants; Z79.899 Other long term (current) drug therapy; Z88.5 Allergy status to narcotic agent; Z88.8 Allergy status to other drugs, medicaments and biological substances; Z88.6 Allergy status to analgesic agent
CPT/HCPCS: 36569; C1751; C1894